=== PATIENT | female | born 1980 | race Caucasian/White ===

== ENCOUNTER 2019-07-27 23:23 | Emergency (ER) | payer BC, SELFPAY ==
[2019-07-27 23:20] VITALS: BP 148/92; PULSE 119; RESP 20; O2SAT 100
[2019-07-27 23:27] VITALS: BP 148/92; PULSE 116; RESP 20; TEMP 37.4; O2SAT 99
--- NOTE | 2019-07-27 23:28 | DI.RAD_ITS ---
EXAM: XR ANKLE LT COMPLETE INDICATION: notable deformity of ankle after fall. COMPARISON: No exams were available for comparison TECHNIQUE: 2D digital imaging was performed. FINDINGS: There is a comminuted fracture of the distal fibula there is posterior displacement of the distal fra cture fragment. The apex of the fracture is directed medially. There is a minimally displaced poste rior malleolar fracture. There is a fracture through the base of the medial malleolus. The distal f racture fragment is displaced laterally. There may be extension of the fracture laterally through th e physis. This is posteriorly displaced relative to the distal tibia. There is diffuse soft tissue swelling of the ankle. IMPRESSION: Trimalleolar fracture of the left ankle with subluxation of the talus relative to the tibia.
[2019-07-27 23:30] VITALS: BP 130/89; PULSE 109; RESP 20; O2SAT 100
--- NOTE | 2019-07-27 23:37 | ED.GENADUL_ITS ---
Discharge Plan Disposition Patient Disposition: HOME Condition: Good Discharge Details Chief Complaint: Orthopedic Clinical Impression: Ankle fracture, left, Fracture of distal end of left tibia, Fracture of distal end of fibula Primary Care Provider: [place],Local ED Provider: Ramesh Devries Home Meds and New Rx's Prescriptions: New hydrocodone-acetaminophen [Mildred] 5-325 mg tablet 1 tab PO Q6H PRN (Reason: pain) Qty: 6 RF: 0 No Action lisinopril 20 mg Tablet 20 mg PO DAILY RF: 0 Discharge Instructions Instructions: Ankle Fracture (ED) Additional Instructions: You have a notable fracture of your left ankle, which includes a fracture of the end of the tibia and fibula. Please keep the splint on at all times. If you notice severe pain, I would recommend immediately loosening all the Suresh wraps on the splint, letting the foot have a moment to breathe, and then gently reapplying the Suresh wraps. Please also do this if you notice any numbness or tingling, or any changes in color for your foot or toes. Please take Tylenol and Motrin [id number], please take 800 mg of ibuprofen every 6 hours and 1000 mg of Tylenol every 6 hours for the pain. You can alternate these so that you are getting a new medication every 3 hours. You have been given a few Mildred for pain. Please only use these if absolutely needed. They do have Tylenol in them, so please only take 500 mg of Tylenol if you taking Mildred. He will be contacted Monday morning by the marketing development specialist to help set up follow-up either up here or in [place]. Regardless please follow-up closely with an marketing development specialist for reassessment. If you notice any worsening of your symptoms, or any new symptoms such as vomiting, diarrhea, fever, chills, shortness of breath, chest pain, numbness, tingling, change in color for your toes or foot, worsening pain, throbbing and viselike sensation, weakness, or fainting , please return immediately to the emergency department for reevaluation. Please follow up with your primary care provider as soon as possible for reassessment and reevaluation. As always, it was a pleasure participating in your medical care today. Medical Decision Making This is a pleasant 39-year-old female with a past medical history of hypertension who was vacationing at [place] from [place], presents today for deformity of left ankle. She went out on the dance floor, unfortunately slipped, twisted her left ankle and had notable deformity. Exam demonstrates a deformed ankle with forced plantarflexion, and slight posterior displacement. She does have notably intact neurovascular exam with normal pulses, brisk capillary refill, normal sensation. Concern is for significant fracture requiring reduction. Hematoma block was placed with a 50-50 mixture of 1% lidocaine and 0.25% bupivacaine, 10 cc total were instilled into the ankle, patient tolerated this well and had notable improvement of her pain. We will get x-rays to further evaluate the fracture, treat pain and reassess. 1:13 AM X-ray shows notable fracture of the distal tibia and fibula with mild derangement of the ankle. I did contact the orthopedic surgeon on-call Dr. Hamlin and discussed the case and imaging with him. He reviewed the images independently. Although there is certainly need for surgical management, it is felt that acute surgical management is not the best interest of the patient. Recommendations at this time are to reduce, splint, and have close follow-up. He will be contacting the patient on Monday to help facilitate follow-up with him, or close follow-up with an marketing development specialist in [place]. The patient's ankle was reduced utilizing morphine and hematoma block. She tolerated this well. Positioning is notably improved. Patient tolerated procedure well. Short leg posterior splint was placed, post examination after splint placement demonstrated continued normal sensation, brisk capillary refill, and a good ability to move all toes. No evidence of neurovascular compromise. At this time the patient's pain is well controlled, will discharge with crutches and close follow-up. We will give a few Mildred's to go home with, and recommend continued NSAID treatment at home with ice and elevation. We spent a long time discussing red flags which to immediately return as well as the importance of close follow-up with orthopedics. They have been given a disc of their images for home use with orthopedic follow-up. I have extensively reviewed the treat ment plan and discharge instructions with the patient and their family. I have addressed all patient concerns at this time. The patient and family was made aware of what symptoms to monitor for that would warrant a return to the emergency department. Discussed the plan with the patient and family, they demonstrate verbal understanding and agreement with our assessment and plan at this time. COMPARISON: No relevant prior studies available. FINDINGS: Bones/joints: There is comminuted fracture of the distal left tibia with vertical component through the posterior malleolus as well as horizontal component through the base of the medial malleolus with mild displacement and fracture line diastases as well as likely horizontal fracture through the region of the physis. There is comminuted, displaced fracture of the distal left fibular metaphysis with dorsal displacement as well as medial apex angulation. There is dorsal subluxation of the talus in relation to the distal tibia. There is abnormal appearance of the ankle mortise with widening of the distal syndesmosis. Ankle joint effusion is present. Soft tissues: Severe soft tissue edema of the left ankle. IMPRESSION: Comminuted, displaced fractures of the distal left tibia and fibula as discussed with posttraumatic subluxation of the tibiotalar joint and asymmetry of the ankle mortise as well as widening of the distal syndesmosis. Recommend orthopedic surgical consultation. Thank you for allowing us to participate in the care of your patient. Dictated and Authenticated by: Fabio Ceballos MD [facility] General Date/Time Provider Initiated Documentation: 07/27/19 23:25 . HPI Narrative: This is a 39-year-old female with no significant past medical history except for hypertension for which she takes lisinopril who presents today for evaluation of left ankle deformity. She is here on vacation at [place], when she went out on a dance floor on platform heels, and unfortunately slipped and twisted her left ankle. Notable deformity at that time. She does have 1 or 2 drinks in her system at this time. She did not fall and hit her head. She had no loss of consciousness. Aside for pain in her left ankle she denies any other complaints. No other modifying factors. She denies numbness or tingling. Pain is made worse with movement, improved by nothing. Related Data Home Medications Medication Instructions Recorded Confirmed lisinopril 20 mg PO DAILY 07/27/19 07/27/19 hydrocodone-acetaminophen [Mildred] 1 tab PO Q6H PRN #6 tab 07/28/19 Previous Rx's Medication Instructions Recorded hydrocodone-acetaminophen [Mildred] 1 tab PO Q6H PRN #6 tab 07/28/19 Allergies Allergy/AdvReac Type Severity Reaction Status Date / Time Sulfa (Sulfonamide Allergy Intermediate Swelling/Ed Unverified 07/27/19 23:31 Antibiotics) isabel General Stated Complaint: Orthopedic LC: 3 Review of Systems Review of Systems ROS Unobtainable: All systems reviewed & are unremarkable except as noted in HPI and below PFSH Social History Smoking/Tobacco Use Status: Never Substance use type: does not use Do you feel safe at home: Yes Do you feel safe in your relationship?: Yes Exam Narrative Exam Narrative: 1.Const: Well-nourished, Well-developed, appearing stated age 2.Eyes: PERRL, no conjunctival injection, and symmetrical lids. 3.ENT: Atraumatic external nose and ears. Moist MM. Neck: Symmetric, trachea midline, No thyromegaly. 4.CVS: +S1/S2, No murmurs or gallops. Peripheral pulses 2+ and equal in all extremities. Brisk capillary refill in all extremities. 5.RESP: Unlabored respiratory effort. Clear to auscultation bilaterally. No wheezes rales or rhonchi 6.GI: Soft, Nontender/Nondistended, No hepatosplenomegaly. No guarding or rebound. 7.MSK: Normocephalic , left ankle demonstrates notable deformity with fixed plantarflexion, and slight posterior displacement of the ankle. Patient is able to wiggle toes still, due to significant pain she is unable to otherwise move the ankle much at all. She does have good sensation throughout, brisk capillary refill in all toes, +2 dorsalis pedis and posterior tibial pulse. Note other significant tenderness in the midshaft tip/fib, or knee. No other pain for the other extremities. No evidence of active bleeding. 8.Skin: Warm, Dry. No rashes or lesions. 9.Neuro: veterinarian helper II-XII grossly intact. Sensation grossly intact, no focal neurologic deficits. 10.Psych: (AAO) x3. Appropriate mood and affect Course Vital Signs Vital signs: Vital Signs Temperature 37.4 C 07/27/19 23:27 Pulse 116 H 07/27/19 23:27 Respiratory Rate 20 07/27/19 23:27 Blood Pressure 148/92 H 07/27/19 23:27 Pulse Oximetry 99 07/27/19 23:27 Temperature 37.4 C 07/27/19 23:27 Temperature Source Temporal Artery Scan 07/27/19 23:27 Pulse 116 H 07/27/19 23:27 Respiratory Rate 20 07/27/19 23:27 Respiratory Effort Non-Labored 07/27/19 23:32 Blood Pressure 148/92 H 07/27/19 23:27 Blood Pressure Position Supine 07/27/19 23:27 Pulse Oximetry 99 07/27/19 23:27 Oxygen Delivery Method Room Air 07/27/19 23:27 Oxygen Flow Rate 0 07/27/19 23:27 Pain Level 10 07/27/19 23:35
--- NOTE | 2019-07-28 00:03 | DI.VRAD_ITS ---
PROCEDURE INFORMATION: Exam: XR Left Ankle Exam date and time: 07/27/2019 11:48 PM Clinical history: 39 years old, female; Pain; Left; Patient HX: Notable deformity of ankle after fall TECHNIQUE: Imaging protocol: XR Left ankle. Views: 3 or more views. COMPARISON: No relevant prior studies available. FINDINGS: Bones/joints: There is comminuted fracture of the distal left tibia with vertical component through the posterior malleolus as well as horizontal component through the base of the medial malleolus with mild displacement and fracture line diastases as well as likely horizontal fracture through the region of the physis. There is comminuted, displaced fracture of the distal left fibular metaphysis with dorsal displacement as well as medial apex angulation. There is dorsal subluxation of the talus in relation to the distal tibia. There is abnormal appearance of the ankle mortise with widening of the distal syndesmosis. Ankle joint effusion is present. Soft tissues: Severe soft tissue edema of the left ankle. IMPRESSION: Comminuted, displaced fractures of the distal left tibia and fibula as discussed with posttraumatic subluxation of the tibiotalar joint and asymmetry of the ankle mortise as well as widening of the distal syndesmosis. Recommend orthopedic surgical consultation. Dictated and Authenticated by: Fabio Ceballos MD. Ordering:ALIRIO Chandler MD
[2019-07-28] MEDS: Normal Saline 1,000 ML 1000 ML IV (00:15)
[2019-07-28 00:16] LABS: HCG Quant, Pregnancy < 1 mIU/mL (1-3)
[2019-07-28] MEDS: Ketorolac 30 MG/ML VIAL IVP (00:16)
[2019-07-28] MEDS: MORPHine 10 MG/ML VIAL 4 MG IVP ×2 (00:20→01:00)
[2019-07-28 00:30] VITALS: BP 140/89; PULSE 106; RESP 20; O2SAT 100
[2019-07-28 01:00] VITALS: BP 142/96; PULSE 120; RESP 22; O2SAT 100
[2019-07-28 01:30] VITALS: BP 125/83; PULSE 115; RESP 20; O2SAT 98
[2019-07-28 01:59] VITALS: BP 140/86; PULSE 100; RESP 20; O2SAT 99
== END 2019-07-28 01:53 | disposition home or self-care (01) ==
PROVIDERS: Emergency Provider Student in an Organized Health Care Education/Training Program
DX: S82.842A Displaced bimalleolar fracture of left lower leg, initial encounter for closed fracture (principal); W18.49XA Other slipping, tripping and stumbling without falling, initial encounter; I10 Essential (primary) hypertension
CPT/HCPCS: 36415; 96361; 96374; 96375; 99284; 73610; 84702; E0114; J1885; J2270

== ENCOUNTER 2019-07-29 15:12 | Outpatient (CLI) | payer BC, SELFPAY ==
--- NOTE | 2019-07-29 15:10 | DI.RAD_ITS ---
EXAM: XR ANKLE LT COMPLETE INDICATION: Reduction check. COMPARISON: XR ANKLE LT COMPLETE from 07/27/2019 TECHNIQUE: 2D digital imaging was performed. FINDINGS: There is a comminuted fracture of the distal left fibula. There is posterior and lateral angulation of the distal fracture. There is a transverse fracture through the base of the medial malleolus. Th e distal fracture fragment is displaced laterally. There is a fracture of the posterior malleolus wi th moderate displacement. There is lateral and posterior dislocation of the ankle. The patient's an kle is in a cast. IMPRESSION: Trimalleolar fracture dislocation of the left ankle.
== END 2019-07-29 15:32 ==
PROVIDERS: Visit Provider Student in an Organized Health Care Education/Training Program
DX: S82.852A Displaced trimalleolar fracture of left lower leg, initial encounter for closed fracture (principal)
CPT/HCPCS: 73610

== ENCOUNTER 2019-07-29 15:55 | Emergency (ER) | payer BC, SELFPAY ==
[2019-07-29] VITALS (8 sets, daily range): BP systolic 139–150; BP diastolic 85–88; PULSE 92–100; RESP 13–20; TEMP 36.7; O2SAT 96–100
--- NOTE | 2019-07-29 16:21 | ED.GENADUL_ITS ---
Discharge Plan Disposition Patient Disposition: HOME Condition: Stable Discharge Details Chief Complaint: Orthopedic Clinical Impression: Trimalleolar fracture of left ankle Primary Care Provider: [place] ED Provider: Be Nguyen Home Meds and New Rx's Prescriptions: Continued naproxen 250 mg tablet 250 mg PO BID Qty: 60 RF: 0 lisinopril 20 mg Tablet 20 mg PO DAILY RF: 0 hydrocodone-acetaminophen [[place]] 5-325 mg tablet 1 tab PO Q6H PRN (Reason: pain) Qty: 6 RF: 0 Discharge Instructions Additional Instructions: follow up as scheduled with orthopedics take your pain medications as prescribed if you have severe worsening of pain or fevers return to the emergency department. Medical Decision Making 39 yo female cmoes in from the orthopedic office as she requires procedural sesation for a left ankle fracture/dislocation. she sustained the fracture on 07/27 and had it reduced on that day and splinted. She saw Dr. evans who obtained repeat xray and feels it requires repeat reduction. no new trauma or pain, intact cap refill and senation in the left ankle. She states no hx of adverse reactions to anethetics. She is stable for procedural sedation for reduction of her fx/dislocation pt given total of 150mg propofol and 200mg iv fentanyl without complications, Dr. Evans is happy with post reduction films. Intact senstion and cap refill. She is scheduled for surgery this Monday Differential Diagnosis Differential Diagnosis: fracture, dislcoation Imaging Data Radiologic Study: Imaging: X-Ray My impression: trimalleolar fx/dislocation HPI General Mode of arrival: ambulatory . Date/Time Provider Initiated Documentation: 07/29/19 16:11 . Limitations to Documentation: no limitations . Information obtained by: patient . History of Present Illness 39 year old F presents to the emergency department with the chief complaint of left ankle discomfort, described as moderate, Patient reports no radiation. Patient started experiencing this day(s) (2) and it has been constant. Rest improves symptom(s), Movement worsens symptoms . Patient notes no other symptoms.. Related Data Home Medications Medication Instructions Recorded Confirmed lisinopril 20 mg PO DAILY 07/27/19 07/29/19 hydrocodone-acetaminophen [[place]] 1 tab PO Q6H PRN #6 tab 07/28/19 07/29/19 naproxen 250 mg tablet 250 mg PO BID #60 tab 07/29/19 07/29/19 Previous Rx's Medication Instructions Recorded hydrocodone-acetaminophen [[place]] 1 tab PO Q6H PRN #6 tab 07/28/19 naproxen 250 mg tablet 250 mg PO BID #60 tab 07/29/19 Allergies Allergy/AdvReac Type Severity Reaction Status Date / Time Sulfa (Sulfonamide Allergy Intermediate Swelling/Ed Unverified 07/29/19 16:10 Antibiotics) isabel General Stated Complaint: Orthopedic LC: 3 Review of Systems Review of Systems ROS Unobtainable: All systems reviewed & are unremarkable except as noted in HPI and below Constitutional Constitutional: Denies chills, Denies fever(s) and Denies weakness ENT Ears, Nose, Mouth, and Throat: Denies change in voice Cardiovascular Cardiovascular: Denies chest pain and Denies dyspnea Respiratory Respiratory: Denies dyspnea Gastrointestinal Gastrointestinal: Denies abdominal pain, Denies nausea and Denies vomiting Neurologic Neurologic: Denies weakness PFS Social History Smoking/Tobacco Use Status: Never Substance use type: does not use Current gender identity: female Do you feel safe at home: Yes Do you feel safe in your relationship?: Yes Exam Const General: no acute distress Orientation: alert HENMT Head: normal to inspection Ears: external ears normal General nose exam: external nose normal Mouth: moist mucous membranes Eyes General: appearance normal, both eyes and all related structures Neck Neck: normal visual inspection Resp Effort & Inspection: normal respiratory effort and able to speak in complete sentences Cardio Rate: regular rate Skin General skin exam: no rashes or lesions noted Neuro General: alert and oriented x3 Extrem General: normal capillary refill Psych Mental Status: mental status grossly normal Course Vital Signs Vital signs: Vital Signs Temperature 36.7 C 07/29/19 16:07 Pulse 92 H 07/29/19 16:07 Respiratory Rate 16 07/29/19 16:07 Blood Pressure 150/88 H 07/29/19 16:07 Pulse Oximetry 97 07/29/19 16:07 Temperature 36.7 C 07/29/19 16:07 Temperature Source Skin 07/29/19 16:07 Pulse 92 H 07/29/19 16:07 Respiratory Rate 16 07/29/19 16:07 Respiratory Effort Non-Labored 07/29/19 16:07 Blood Pressure 150/88 H 07/29/19 16:07 Blood Pressure Position Sitting 07/29/19 16:07 Pulse Oximetry 97 07/29/19 16:07 Oxygen Delivery Method Room Air 07/29/19 16:07 Oxygen Flow Rate 0 07/29/19 16:07 Pain Level 10 07/29/19 16:07 Procedures Procedural Sedation Indication: fracture/dislocation reduction ASA Class: II Time of Last PO Intake: 12:00 Preparation: front desk monitor applied, pulse oximeter, capnometry used and supplemental O2 applied Fentanyl: IV Fentanyl dose (mcg): 20 (200mcg fentanyl) IV Propofol dose (mg): 150 Patient Tolerated Procedure: well Complications: none
[2019-07-29] MEDS: Normal Saline 1,000 ML 1000 ML IV (16:35)
--- NOTE | 2019-07-29 16:35 | DI.RAD_ITS ---
EXAM: RF FLUORO<1 HOUR CLINICAL HISTORY: REDUCTION FILMS. COMPARISON: XR ANKLE LT COMPLETE from 07/29/2019 FINDINGS: Fluoroscopic images following reduction show improved alignment of the left ankle trimalleolar fractu re dislocation. The alignment appears near anatomic. The patient's ankle is in a cast. This does o bscure the underlying bony detail. IMPRESSION: Improved alignment of the left ankle trimalleolar fracture dislocation.
[2019-07-29] MEDS: Propofol 200 MG/20 ML VIAL (16:40)
[2019-07-29] MEDS: fentaNYL 100 MCG/2 ML VIAL IVP (16:42)
[2019-07-29] MEDS: fentaNYL 100 MCG/2 ML VIAL (16:51)
--- NOTE | 2019-07-29 16:56 | DI.RAD_ITS ---
EXAM: XR ANKLE LT COMPLETE CLINICAL HISTORY: post reduction TECHNIQUE: 2D digital imaging was performed. COMPARISON: XR ANKLE LT COMPLETE from 07/29/2019 FINDINGS: BONES: Since the prior examination there has been improvement in the alignment of the trimalleolar fr acture dislocation. Alignment is now nearly anatomic. There is persistent displacement of the poste rior malleolar and comminuted lateral malleolar fractures. JOINTS:Please see above. SOFT TISSUE: There is persistent soft tissue swelling. The ankle is in a cast. This does obscure th e underlying bony detail. IMPRESSION: Improved alignment of the trimalleolar fracture dislocation.
--- NOTE | 2019-07-29 17:10 | RESPIRATORY ---
07/28/2019-Pt here for a deduction of left ankle. Pre SPO2 98%, RR 18, ETC02 32mmhg, HR 101. Throughout Sedation 98-100%, RR 16-22, ETCO2 14-23mmhg, HR 123, Post SPO2 100%, RR 18, ETCO2 35mmhg, HR 100.Pt alert and talking.
--- NOTE | 2019-07-29 17:37 | W.PM.OP ---
Date of service: 07/29/19 Time of Service: 17:37 Operative Note Operative Note DATE OF PROCEDURE: 07/29/19 PRE-OP DIAGNOSIS: Left trimalleolar ankle fracture dislocation POST-OP DIAGNOSIS: same PROCEDURE: Closed reduction with manipulation left ankle fracture dislocation SURGEON: Jose Hamlin ANESTHESIA: other (Conscious sedation) ESTIMATED BLOOD LOSS: 0 COMPLICATIONS: None Patient was transported to: other (Emergency room care) Patient's condition: stable Implants: None Indications: See office visit note from today for details Findings: Significantly displaced left trimalleolar ankle fracture dislocation with large posterior malleolus fracture fragment Procedure Description: The patient was transported the emergency room for urgent left ankle fracture dislocation reduction. The correct patient, site of the procedure, and procedure were all confirmed prior to induction of conscious sedation by the emergency room physician. The patient's left ankle was manipulated in a posteriorly directed force applied to the anterior lawrence while he anterior drawer was applied to the patient's heel and ankle. There is a palpable clunk as the talus was reduced from its posterior position to a neutral position. The left leg foot and ankle were wrapped in Webril. A well molded well-padde short leg plaster splint was applied. All bony prominences were appropriately padded. The plaster was molded carefully and appropriately to maintain the ankle mortise and appropriate reduced in neutral position. The patient tolerated the procedure without complication and was neurovascularly intact after reduction and splint hardening. Postreduction x-rays were independently reviewed and confirmed successful reduction of the patient's previous trimalleolar fracture dislocation. All questions answered between the patient and her mother. Plan is for strict elevation. Nonweightbearing with crutches. And plan for surgical fixation as scheduled on 08 02, Monday. Agree and understand treatment plan. Will call if any changes or concerns.
--- NOTE | 2019-07-29 17:53 | DI.VRAD_ITS ---
PROCEDURE INFORMATION: Exam: XR Left Ankle Exam date and time: 07/29/2019 5:15 PM Clinical history: 39 years old, female; Abnormal findings; Abnormal imaging study; Post reduction ankle TECHNIQUE: Imaging protocol: XR Left ankle. Views: 3 or more views. COMPARISON: CR XR ANKLE LT COMPLETE 07/29/2019 3:33 PM FINDINGS: Bones/joints: There has been interval reduction of the tri-malleolus fracture dislocation since the prior examination. Position and alignment are now nearly anatomic. Soft tissues: Cast material is present, which obscured fine bone detail. IMPRESSION: Improved position and alignment of trimalleolar fracture, status post closed reduction. Dictated and Authenticated by: Bjorn Rodarte MD. Ordering:RUPESH Lr MD
--- NOTE | 2019-07-29 18:43 | NUR.NOTE ---
Time out performed by Dr Nguyen prior to sedation Patient monitored throughout procedure including capnography Ortho, ED-MD, RN x2, RT, and telegraph repeater technician in attendance Pt easily arousable and conversive after procedure D/C with family Nursing Note:
== END 2019-07-29 17:47 | disposition home or self-care (01) ==
PROVIDERS: Emergency Provider Emergency Medicine
DX: S82.852A Displaced trimalleolar fracture of left lower leg, initial encounter for closed fracture (principal); W01.0XXA Fall on same level from slipping, tripping and stumbling without subsequent striking against object, initial encounter
CPT/HCPCS: 76000; 96361; 96374; 99284; 73610; J3010

== ENCOUNTER 2019-08-02 07:16 | Day surgery (SDC) | payer BC, SELFPAY ==
[2019-08-02] VITALS (9 sets, daily range): BP systolic 124–151; BP diastolic 75–100; PULSE 71–83; RESP 13–26; TEMP 36.1–36.9; O2SAT 95–98
[2019-08-02] MEDS: Lactated Ringers 1,000 ML 100 ML IV ×2 (07:56→10:36)
[2019-08-02] MEDS: Bupivacaine 0.5% Pres-Free 30 ML VIAL (08:49)
--- NOTE | 2019-08-02 09:53 | DI.RAD_ITS ---
EXAM: XR FOOT LT LIMITED CLINICAL HISTORY: FRACTURE LEFT ANKLE. TECHNIQUE: 2D digital imaging was performed. C-arm fluoroscopy was utilized by Dr. Hamlin during open reduction and internal fixation of a fracture. Fluoro time: 138 sec COMPARISON: No exams were available for comparison FINDINGS: BONES: No acute fracture is present. No bony destructive lesion is seen. JOINTS: No dislocation present. SOFT TISSUE: Normal. IMPRESSION: Hard copies show reduction of the fracture fragments with plate and screw fixation in place. The ankl e mortise appears reconstituted.
--- NOTE | 2019-08-02 10:05 | ROE_ITS ---
Operative Note Operative Note DATE OF PROCEDURE: 08/02/19 PRE-OP DIAGNOSIS: 1. Left trimalleolar ankle fracture dislocation POST-OP DIAGNOSIS: same PROCEDURE: 1. Left trimalleolar ankle ORIF of the medial malleolus, lateral malleolus, and posterior malleolus SURGEON: Jose Hamlin ASSISTING SURGEON: Kamar Moore ANESTHESIA: GETA, regional and local ESTIMATED BLOOD LOSS: 15 TOURNIQUET TIME: 125 COMPLICATIONS: None Patient was transported to: PACU Patient's condition: stable Implants: Synthes 4.5 mm partially-threaded cannulated screws x 2 in the posterior malleolus Synthes 1/3 tubular LCP 7-hole plate on the distal fibula with 6 x 3.5 mm locking screws Synthes 3.5 mm partially-threaded cannulated screws x 2 in the medial malleolus Indications: See H&P for details Findings: See procedure description Procedure Description: The patient was taken to the operating room. The correct patient, site of the procedure, and procedure were all verified prior to induction of general anesthesia. The patient was positioned prone for the posterior lateral approach to the ankle. All bony prominences well-padded. A nonsterile tourniquet had been placed high on the patient's thigh. The remainder of the left lower extremity was prepped and draped in the usual sterile fashion for ankle surgery. 2 g of cefazolin were administered pre- incision. An Esmarch was used and the tourniquet was inflated. The standard posterior lateral approach was taken to the ankle. Care was taken to preserve the peroneal tendon sheath, avoid the sural nerve, and elevate the FHL muscle belly medially. The posterior malleolus fracture was one large piece that was proximally displaced. It could be manually reduced to a near anatomic position. The decision was made to preserve all soft tissue attachments distally especially PITFL and fix this fragment with two 4.5 mm partially-threaded cannulated screws. Threaded guidewires were placed in a posterior to anterior fashion while the fragment was held in a reduced position. The cannulated drill was then used over the most distal guidewire first and then an appropriately length screw was placed over the guidewire and provisionally tightened. This was repeated for the more proximal guidewire and screw placement. Both screws were then final tightened and reduction and hardware placement was confirmed on AP lateral and mortise fluoroscopy. These images were then saved as they would be obscured by the lateral and medial malleolar fixation. The peroneal tendons were then mobilized medially as a unit and there sheath through the same posterior lateral incision. The fibular fracture was identified from posterior and fracture fragments preliminary reduced with clamps. There was significant comminution and this fracture was not amenable to lag screw fixation. I then selected a 7-hole one third tubular locking plate which was positioned slight there would be 3 screws distal to the fracture area and 3-4 screws proximal to the fracture area. A lobster-claw clamp held reduction in the plate in place. I first placed a cortex screw distally and proximally to compress the plate down to bone. I then drilled, measured, and placed appropriately length 3.5 mm locking screws proximally and distally. The original cortex screws were removed and swapped out for locking screws as well. 6 screws were placed and one hole about the fracture site was left open. AP and lateral and mortise fluoroscopy confirmed appropriate fibular length, reduction, hardware placement. Next attention was turned to the medial malleolus. A small curved incision was made over the fracture. Careful dissection was used to mobilize the saphenous vein medially. Periosteal tissue was removed from the fracture site and in the medial malleolus was held in place with a clamp. 2 parallel guidewires were placed anterior and posterior from just medial to the tip of the medial malleolus past the fracture site into the central distal tibia avoiding other hardware. The cannulated drill was then used over the anterior guidewire and then a screw placed and provisionally tightened. This was repeated for the posterior guidewire and screw. The guidewires were removed. Final AP, mortise, and lateral fluoroscopy confirmed appropriate hardware positioning and excellent reduction at the fracture sites and ankle mortise. All wounds were copiously irrigated with normal saline. 1 g of vancomycin powder was distributed deep and superficial in both the posterior lateral and medial incisions. The FHL and peroneal tendons were allowed to fall back into place. There is no deep tissue to repair. 2-0 Vicryl was used to close subcutaneous tissue in a buried interrupted fashion. 3-0 nylon was used to close skin in a horizontal mattress fashion. Xeroform was applied to both incisions followed by 4 x 4 dry gauze and an ABD over the posterior lateral incision. Sterile cotton was wrapped around the foot ankle and leg. A posterior splint was applied followed by an Suresh wrap not overly tightened. The patient awoke from anesthesia without complication and was taken to recovery room in stable condition.
--- NOTE | 2019-08-02 10:14 | PDOC.DSDIS_ITS ---
Discharge Plan Disposition Patient Disposition: HOME Condition: Stable Discharge Details Reason For Visit: (L) TRIMALLEOLAR ANKLE FX Attending Provider: Jose Hamlin Primary Care Provider: [place],Local Home Meds and New Rx's Prescriptions: New naproxen 250 mg tablet 250 mg PO BID PRN (Reason: pain) Qty: 60 RF: 0 oxycodone 5 mg tablet 5 mg PO Q4H PRN (Reason: pain, severe) Qty: 36 RF: 0 aspirin 325 mg tablet 325 mg PO BID Qty: 60 RF: 0 No Action naproxen 250 mg tablet 250 mg PO BID Qty: 60 RF: 0 lisinopril 20 mg Tablet 20 mg PO DAILY RF: 0 hydrocodone-acetaminophen [[place]] 5-325 mg tablet 1 tab PO Q6H PRN (Reason: pain) Qty: 6 RF: 0 Discharge Instructions Additional Instructions: See forms provided by Dr. Hamlin a medium and a small I think I will check later Referrals: Jose Hamlin MD [ [facility]FF PHYSICIAN] - Equipment/Supplies: Splint Activity:: Elevate Remove Dressings/Wound Care:: Do Not Remove Diet:: As Tolerated Discharge Orders Discharge Orders: Discharge Order (Routine); Ordered 08/02/19 Ordered By: Jose Hamlin
[2019-08-02] MEDS: ceFAZolin 2 GM/50 ML BAG IVPB (10:35)
[2019-08-02] MEDS: Bupivacaine 0.25% Pres-Free 30 ML VIAL (11:40)
[2019-08-02] MEDS: Hydrogen Peroxide 3% 480 ML BTL (14:15)
--- NOTE | 2019-08-02 15:26 | DI.RAD_ITS ---
EXAM: XR ANKLE LT COMPLETE INDICATION: Postop. COMPARISON: XR ANKLE LT COMPLETE from 07/29/2019 TECHNIQUE: 2D digital imaging was performed. FINDINGS: Three views were obtained and show plate and screw fixation of tibial fibular fracture. Alignment ap pears nearly anatomic. The ankle is in a splint. Ankle mortise is well maintained IMPRESSION:
== END 2019-08-02 17:16 | disposition home or self-care (01) ==
PROVIDERS: Visit Provider Student in an Organized Health Care Education/Training Program
PROC: (CPT 27823; principal; 2019-08-02 09:00)
DX: S82.852A Displaced trimalleolar fracture of left lower leg, initial encounter for closed fracture (principal); W01.0XXA Fall on same level from slipping, tripping and stumbling without subsequent striking against object, initial encounter; Y93.41 Activity, dancing; G89.18 Other acute postprocedural pain; I10 Essential (primary) hypertension
CPT/HCPCS: 27823; C1713; 81025; 73610; 73620; J0131; J0690; J2250

== ENCOUNTER 2019-08-13 07:09 | Outpatient (CLI) | payer BC, SELFPAY ==
--- NOTE | 2019-08-13 09:04 | DI.RAD_ITS ---
EXAM: XR ANKLE LT COMPLETE INDICATION: 1ST POST OP ORIF. COMPARISON: XR ANKLE LT COMPLETE from 08/02/2019 TECHNIQUE: 2D digital imaging was performed. FINDINGS: Three views were obtained and show plate and screw fixation tibial fibular fracture with no gross int erval change in alignment in comparison with previous examination of August 02. IMPRESSION:
== END 2019-08-13 07:29 ==
PROVIDERS: Visit Provider Student in an Organized Health Care Education/Training Program
DX: S82.852D Displaced trimalleolar fracture of left lower leg, subsequent encounter for closed fracture with routine healing (principal)
CPT/HCPCS: 73610

== ENCOUNTER 2019-09-11 14:08 | Outpatient (CLI) | payer BC, SELFPAY ==
--- NOTE | 2019-09-11 13:48 | DI.RAD_ITS ---
EXAM: XR ANKLE LT COMPLETE INDICATION: f/u fracture. COMPARISON: XR ANKLE LT COMPLETE from 08/13/2019 TECHNIQUE: 2D digital imaging was performed. FINDINGS: There has been no change in alignment of the fractures or orthopedic hardware in the left ankle. The re is persistent soft tissue swelling about the ankle. No new fracture or dislocation is present.
== END 2019-09-11 14:28 ==
PROVIDERS: Visit Provider Student in an Organized Health Care Education/Training Program
DX: S82.852D Displaced trimalleolar fracture of left lower leg, subsequent encounter for closed fracture with routine healing (principal); M79.89 Other specified soft tissue disorders
CPT/HCPCS: 73610

== ENCOUNTER 2019-10-29 10:21 | Outpatient (CLI) | payer BC, SELFPAY ==
--- NOTE | 2019-10-29 09:20 | DI.RAD_ITS ---
EXAM: XR ANKLE LT COMPLETE CLINICAL HISTORY: F/U ORIF L ANKLE TECHNIQUE: COMPARISON: XR ANKLE LT COMPLETE from 09/11/2019 FINDINGS: Three views were obtained and show plate and screw fixation of tibial fibular fracture with no gross interval change in alignment in comparison with examination of September 11. The ankle mortise is well maintained. IMPRESSION:
== END 2019-10-29 10:41 ==
PROVIDERS: Visit Provider Student in an Organized Health Care Education/Training Program
DX: S82.852D Displaced trimalleolar fracture of left lower leg, subsequent encounter for closed fracture with routine healing (principal)
CPT/HCPCS: 73610

== ENCOUNTER 2020-06-23 09:06 | Outpatient (CLI) | payer BC, SELFPAY ==
--- NOTE | 2020-06-23 09:00 | DI.RAD_ITS ---
EXAM: XR ANKLE LT COMPLETE CLINICAL HISTORY: f/u fracture TECHNIQUE: COMPARISON: CR XR ANKLE LT COMPLETE from 10/29/2019 FINDINGS: Three views were obtained and again show plate and screw fixation of previously noted tibiofibular fr acture, no gross interval change in alignment of the fracture fragments in comparison with previous e xamination of September 2019. IMPRESSION: RADIATION DOSE DELIVERED: Total DLP
== END 2020-06-23 09:26 ==
PROVIDERS: Visit Provider Student in an Organized Health Care Education/Training Program
DX: T84.84XA Pain due to internal orthopedic prosthetic devices, implants and grafts, initial encounter (principal)
CPT/HCPCS: 73610